=== PATIENT | male | born 1990 | race Caucasian/White ===

== ENCOUNTER 2022-06-22 18:49 | Emergency (ER) | payer OTHER ==
[~2022-06-22] VITALS: Ht 180.3 cm; Wt 130.2 kg
[2022-06-22 19:09] VITALS: BP 134/75
[2022-06-22] MEDS ORDERED: LIDOCAINE 5% 1 EA PATCH TP STA (19:19)
[2022-06-22] MEDS ORDERED: KETOROLAC 30 MG/ML VIAL IM ONE (19:20)
[2022-06-22] MEDS ORDERED: CYCLOBENZAPRINE 10 MG TAB PO ONE (19:20)
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
--- NOTE | 2022-06-22 20:27 | NUR ---
PT TO BED 7 W/C ASSISTED
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
[2022-06-22] MEDS ORDERED: HYDROcodone/APAP 10/325 MG 1 TAB TAB PO STA (21:15)
--- NOTE | 2022-06-22 21:15 | NUR ---
AMBULATED PATIENT WITH DR. MORALEZ. PT HAS PAIN BUT ABLE TO WALK SMALL STEPS.
[2022-06-22] MEDS ORDERED: IBUP-2213 PO (21:42)
[2022-06-22] MEDS ORDERED: LID5T TP (21:42)
[2022-06-22] MEDS ORDERED: CYCL-711 PO (21:42)
[2022-06-22] MEDS ORDERED: ACET-8905 PO (21:42)
--- NOTE | 2022-06-22 22:15 | NUR ---
Patient discharged with v/s stable. Written and verbal after care instructions given and explained. Patient alert, oriented and verbalized understanding of instructions. Ambulatory with steady gait. All questions addressed prior to discharge. ID band removed. Patient advised to follow up with PMD. Rx of HYDROCODONE/ACETAMINOPHEN FELXERIL IBUPROFEN LIDOERM given.
--- NOTE | 2022-06-22 22:27 | NUR ---
The patient's care was reviewed and supervised by Almita Bashir RN.
--- NOTE | 2022-06-22 23:20 | NUR ---
CALLED 3X TIMES REGARDING PHARMACEUTICAL PRESCRIPTIONS. NO ANSWER.
== END 2022-06-22 19:55 | disposition home or self-care (01) ==
LOC: MED 18:49 → EDSEX 18:49 → MED 19:55
DX: M54.50 Low back pain, unspecified (principal); Z79.899 Other long term (current) drug therapy
CPT/HCPCS: 72100; 96372; 99284; J1885; 81025

== ENCOUNTER 2023-06-03 10:30 | Emergency (ER) | payer OTHER ==
[~2023-06-03] VITALS: Ht 170.2 cm; Wt 81.6 kg
[~2023-06-03 10:30] MED LIST: ACET-8905 PO; CYCL-711 PO; IBUP-2213 PO; LID5T TP
[2023-06-03 10:44] VITALS: BP 149/111; PULSE 89; RESP 18; TEMP 97; O2SAT 98
[2023-06-03] MEDS: KETOROLAC 30 MG/ML VIAL IM ONE (12:34)
[2023-06-03] MEDS ORDERED: METH4TAB1 PO (12:36)
[2023-06-03] MEDS ORDERED: CYCL-711 PO (12:36)
[2023-06-03] MEDS ORDERED: IBUP-2213 PO (12:36)
== END 2023-06-03 13:02 | disposition home or self-care (01) ==
LOC: MED 10:30
DX: M54.50 Low back pain, unspecified (principal)
CPT/HCPCS: 96372; 99283; J1885